=== PATIENT | male | born 1980 | race Caucasian/White ===

== ENCOUNTER 2020-12-03 18:32 | Emergency (ER) | payer OTHER ==
[2020-12-03 21:17] LABS: HEMOGLOBIN 16.9 gm/dl (14.0-17.5); RED BLOOD COUNT 5.61 M/UL (4.20-5.50); WHITE BLOOD COUNT 15.9 K/UL (4.5-11.0)
[2020-12-03 21:32] LABS: BUN/CREATININE RATIO 28 (0-10)
== END 2020-12-03 22:05 | disposition home or self-care (01) ==
LOC: ER1 18:32
PROVIDERS: Preventive Medicine Occupational Medicine
DX: M54.5 Low back pain (principal); G89.29 Other chronic pain; F17.210 Nicotine dependence, cigarettes, uncomplicated; Z88.2 Allergy status to sulfonamides; Z88.1 Allergy status to other antibiotic agents; Z86.73 Personal history of transient ischemic attack (TIA), and cerebral infarction without residual deficits
CPT/HCPCS: 36415; 72131; 80053; 81001; 85025; 85652; 86140; 87086; 99284; J7030